=== PATIENT | male | born 1985 | race Caucasian/White ===

== ENCOUNTER 2023-08-25 13:37 | Emergency (ER) | payer OTHER, SELFPAY ==
[2023-08-25 13:43] VITALS: BP 128/99
[2023-08-25 14:08] LABS: % Basophils 0.5 % (0-2); % Eosinophils 4.1 % (0-6); % Immature Granulocytes 0.3 % (0-0.5); % Lymphocytes 23.6 % (20.5-51.1); % Monocytes 8.6 % (1.7-9.3); % Neutrophils 62.9 % (42.2-75.2); Absolute Basophils 0.1 10^3/uL (0-0.2); Absolute Eosinophils 0.5 10^3/uL (0-0.7); Absolute Lymphocytes 2.8 10^3/uL (1.2-3.4); Absolute Neutrophils 7.4 10^3/uL (1.4-6.5); Hematocrit 43.6 % (39.0-52.0); Hemoglobin 15.1 g/dL (13.0-18.0); Mean Corp Hgb Conc. 34.6 g/dL (33.0-37.0); Mean Corpuscular Hgb 32.5 pg (27.0-31.0); Mean Corpuscular Volume 93.8 fL (80.0-94.0); Mean Platelet Volume 9.5 fL (7.4-10.4); Nucleated Red Blood Cells % 0 % (-); Platelet Count 213 10^3/uL (130-400); Red Blood Cell Count 4.65 10^6/uL (4.70-6.10); Red Cell Dist. Width 13.2 % (11.5-14.5); White Blood Cell Count 11.8 10^3/uL (4.8-10.8)
[2023-08-25 14:09] LABS: INR 0.98
[2023-08-25 14:11] LABS: ALT (SGPT) 82 U/L (0-50); AST (SGOT) 44 U/L (17-59); Alkaline Phosphatase 88 U/L (38-126); Blood Urea Nitrogen 23 mg/dl (9-20); Calcium 10.4 mg/dl (8.4-10.2); Carbon Dioxide 25 mmol/L (22-30); Chloride 104 mmol/L (98-107); Glucose 89 mg/dl (70-99); Potassium 4.6 mmol/L (3.5-5.1); Sodium 137 mmol/L (135-145); Total Bilirubin 0.7 mg/dl (0.2-1.3); Total Protein 7.6 g/dl (6.3-8.2); eGFR > 60.00
[2023-08-25 14:21] LABS: Troponin I < 0.012 ng/ml
--- NOTE | 2023-08-25 15:08 | ED.GENMED ---
History of Present Illness
General
Chief Complaint: Chest Pain
Source: patient
Time Seen by Provider: 08/25/23 15:01
Travel History
Have you had any contact with someone who has COVID-19?: No
Do you have any symptoms of coronavirus? Fever > 100 degrees, chills, cough, shortness of breath, sore throat, loss of taste or smell, muscle aches, or headache?: No
History of Present Illness
History of Present Illness:
38-year-old male with past medical history of GERD, peptic ulcer disease, bipolar disorder presenting to the emergency department for evaluation of upper abdominal pain that has been ongoing over the last few days, intermittent, burning sensation,
unrelieved with his oral Pepcid. Patient states he believes that symptoms were aggravated after he was in [place] on a work trip and admits to drinking a fair amount of bourbon and not eating very well. Patient states symptoms feel very similar
to when he was diagnosed with gastritis in the past. He notes that he has been here twice for similar and the last time he 'got 2 medicines that relieved all of his symptoms within about a week'. He denies any fevers, chills, rigors, current chest
pain, shortness of breath, palpitations, diaphoresis, exertional dyspnea, cough, lower extremity edema or any other concerns presently. Social history was noted for alcohol, daily cigarette tobacco use, occasional marijuana use.
Past History
Past History
ED Past Medical History: Asthma, GERD, HTN, Psychiatric (Bipolar) and Other (Ulcers, Renal calculus)
ED Past Surgical History: None
Social History
Tobacco: Smoker
Alcohol: Occasional
Drug: Marijuana
Personal:
Living: with family
Employment: Employed
Review of Systems
Review of Systems
All Other Systems: ROS reviewed and negative except as documented in HPI and ROS
Phy Exam
Physical Exam
Physical Exam:
GENERAL: Alert , in no apparent distress
EYE: clear conjunctiva b/l
HEAD: NCAT
ENT: o/p clr, mmm.
CARDIAC: Regular rate and rhythm .
LUNGS: Clear breath sounds bilaterally, no acute respiratory distress, no wheezes/rales/rhonchi
ABDOMEN: Soft, mild epigastric ttp, no r/g, no cvat, negative Florentino sign, no tenderness at McBurney's point
NEUROLOGICAL: Alert and oriented
SKIN: Warm and dry, skin intact.
MUSCULOSKELETAL: well perfused.
PSYCH: Normal and appropriate interaction.
Scores
Heart Failure Risk
Heart Failure Risk Score: Not Applicable
Heart Score for Chest Pain Patients
STEMI patient?: No
History: Slightly or Non-Suspicious
ECG: Normal
Age: </= 45 years
Risk Factors: 1 or 2 Risk Factors
Troponin: </= Normal Limit
Heart Score for Chest Pain Patients: 1
Heart Score Risk: 2.5% MACE over next 6 weeks
Withdrawal Assessment of Alcohol
Withdrawal Assessment Completed?: Not applicable
Course
Orders/Labs/Results
Orders:
Orders
08/25/23 13:39
EKG [Electrocardiogram (*1)] Urgent
Reason for Study: Chest Pain
EKG- Treatment ONCE
08/25/23 13:47
CR Chest - 2 Views Urgent
Comment:
Reason For Exam: chest pain
08/25/23 13:51
Complete Blood Count/With Diff Urgent
Comprehensive Metabolic Panel Urgent
Lipase Urgent
Prothrombin Time Urgent
Troponin I Urgent
08/25/23 15:09
Add On- LAB Urgent
Tests Added?: lipase
Abnormal Lab Results
08/25/23
13:51
WBC 11.8 H 10^3/uL
(4.8-10.8)
RBC 4.65 L 10^6/uL
(4.70-6.10)
MCH 32.5 H pg
(27.0-31.0)
Absolute Neuts (auto) 7.4 H 10^3/uL
(1.4-6.5)
Absolute Monos (auto) 1.0 H 10^3/uL
(0.1-0.6)
BUN 23 H mg/dl
(9-20)
Calcium 10.4 H mg/dl
(8.4-10.2)
ALT 82 H U/L
(0-50)
08/25/23 13:51
08/25/23 13:51
Vital Signs
Initial and Last Documented VS:
Initial Vital Signs
Temp Pulse Resp BP Pulse Ox
98.7 F 97 17 128/99 98
08/25/23 13:43 08/25/23 13:43 08/25/23 13:43 08/25/23 13:43 08/25/23 13:43
Last Documented Vital Signs
Temp Pulse Resp BP Pulse Ox
98.7 F 97 17 128/99 98
08/25/23 13:43 08/25/23 13:43 08/25/23 13:43 08/25/23 13:43 08/25/23 13:43
MDM/Problems Addressed
Differential Diagnosis Includes:
GERD, gastritis, peptic ulcer disease, duodenitis, pancreatitis, less concern for an atypical ACS presentation
MDM/Problems Addressed:
38-year-old male presenting emergency department for evaluation of upper abdominal pain over the last week or so. Patient has multiple risk factors for GERD/gastritis and exacerbation of this including frequent alcohol use, smoking, poor diet.
Patient states all of these symptoms feel similar to when he was here previously a few years ago and diagnosed with gastritis. He has never had an endoscopy. Overall I am less concerned about an atypical ACS presentation but will order troponin
and EKG. Additional abdominal labs ordered. Anticipate discharge home. Based off record review patient received Protonix and Carafate as prescriptions to go home with so will reinitiate this.
Chronic conditions affecting care: Other (GERD/gastritis)
Acute Exacerbation and/or Progression of Chronic Illness: Other (GERD/gastritis)
*Pulse Oximetry
Patient hypoxic: no
*EKG
Interpreted by ED Provider?: Yes
Comparison EKG: no changes
Heart Rate: 92
Rate: normal
Rhythm: sinus
Atkinson: normal axis
Ischemia: no ischemia
*Critical Care Note
Total Time (30-74mins, 75-104mins- exclusive of procedures): Not Applicable
Data Reviewed
Review of Other/Old Records Reveals: Labs and Records
Source: patient and records
Comment
Comment:
Patient's labs show a negative troponin, nonischemic EKG. He does have a very mildly elevated ALT which is likely from alcohol intake. Nonspecific leukocytosis. Patient to be discharged home. Aware of return precautions and outpatient follow-up
recommendations.
ED Attending Note
-
Portions of this chart may have been created with voice recognition software.� Occasional wrong word or��sound alike� substitutions may have occurred due to the inherent limitations of voice recognition software.
Discharge Plan
Departure
Patient Disposition: Home (Routine Discharge)
Date of Disposition: 08/25/23
Time of Disposition: 15:39
Patient with high blood pressure during this ER visit?: Yes
Discharge Problem:
Upper abdominal pain
Instructions: Gastritis (DC)
Prescriptions:
New
pantoprazole [Protonix] 40 mg tablet,delayed release (DR/EC)
40 mg PO DAILY Qty: 30 0RF
sucralfate [Carafate] 100 mg/mL suspension
10 ml PO QID Qty: 1000 0RF
No Action
famotidine [Pepcid] 40 MG tablet
40 mg PO DAILY Qty: 30 0RF
pantoprazole [Protonix] 40 mg tablet,delayed release (DR/EC)
40 mg PO BID 14 Days Qty: 28 0RF
sucralfate [Carafate] 1 gram tablet
1 g PO BID Qty: 30 0RF
levofloxacin 500 mg tablet
500 mg PO DAILY 9 Days Qty: 9 0RF
Referrals:
Jayden Nicole, DO [Family Provider] -
Interventions
Interventions:
*Risk Screen - Suicide Last Done: 08/25/23 13:44
*General Assessment Last Done: 08/25/23 13:44
*Neglect/Abuse Screening Last Done: 08/25/23 13:44
*ED COVID-19 Vaccine History Last Done: 08/25/23 13:44
*Nursing Disposition Last Done: 08/25/23 15:48
Discharge Date and Time
Discharge Date/Time: 08/25/23 15:48
Print Language: SINHALA
[2023-08-25 15:36] LABS: Lipase 88 U/L (23-300)
== END 2023-08-25 15:48 | disposition home or self-care (01) ==
LOC: EMR 13:37
PROVIDERS: EMERGENCY PHYSICIAN Emergency Medicine; FAMILY PHYSICIAN Family Medicine
DX: R10.10 Upper abdominal pain, unspecified (principal); K30 Functional dyspepsia; K21.9 Gastro-esophageal reflux disease without esophagitis; F31.9 Bipolar disorder, unspecified; J45.909 Unspecified asthma, uncomplicated; I10 Essential (primary) hypertension; F17.210 Nicotine dependence, cigarettes, uncomplicated; Z87.11 Personal history of peptic ulcer disease; Z87.442 Personal history of urinary calculi
CPT/HCPCS: 99283; 71046; 80053; 83690; 84484; 85025; 85610; 93005

== ENCOUNTER 2023-09-24 06:34 | Emergency (ER) | payer OTHER, SELFPAY ==
[2023-09-24 06:41] VITALS: BP 141/94
--- NOTE | 2023-09-24 07:09 | ED.GENMED ---
History of Present Illness
General
Chief Complaint: Chest Pain
Source: patient and records
Exam Limitations: none
Time Seen by Provider: 09/24/23 06:55
Nursing documentation reviewed up to this point in time: agreed with
History of Present Illness
History of Present Illness:
38-year-old male with past medical history of asthma, GERD/PUD, smoker who presents to the emergency department for evaluation of chest pain. Of note, patient was here 08/25/2023 for upper abdominal pain and was diagnosed with acute gastritis�he
says symptoms today are distinct and that his gastritis symptoms have resolved with treatment. He presents today with chest pain that he says started when he woke up around 5 AM. He says he went outside to smoke a cigarette and when he sat down on
the couch on his porch he noticed he was having some chest pressure. He says that it seems to be lingering and when he discussed with his who is a nurse she recommended he come to the emergency room for assessment. He says that since arrival
it seems to have subsided. Total duration was roughly 2 hours. He denies any significant shortness of breath aside from his typical smoking-related respiratory symptoms. He denies any recent cough or fevers/chills. He says last night he did have
some nausea and an episode of loose stools but this resolved and he did not have any nausea or vomiting associate with this episode. He denies any swelling or pain in the legs. He denies any personal history of cardiac issues but says he has a
strong family history of heart disease. Notably he admits that typically he smokes both cigarettes and marijuana but last night was using a vape rather aggressively for both nicotine and marijuana.
Past History
Past History
ED Past Medical History: Asthma, GERD, HTN, Psychiatric (Bipolar) and Other (Ulcers, Renal calculus)
ED Past Surgical History: None
Social History
Tobacco: Smoker
Alcohol: Occasional
Drug: Marijuana
Personal:
Living: with family
Employment: Employed
Review of Systems
Review of Systems
All Other Systems: ROS reviewed and negative except as documented in HPI and ROS
Constitutional: Denies fever or chills
EENT: Denies sore throat or runny nose
Respiratory: Denies cough or trouble breathing
Cardiac: Reports chest pain; Denies diaphoresis or palpitations
ABD/GI: Reports nausea and diarrhea; Denies abdominal pain or vomiting
: Denies flank pain
Musculoskeletal: Denies neck pain or back pain
Neurological: Denies dizzy or headache
Phy Exam
Physical Exam
Physical Exam:
General: Awake, alert, oriented x3; no acute distress
Head: Normocephalic, atraumatic
Eyes: Conjunctiva normal, sclera anicteric
Throat: Airway intact, handling secretions
Neck: Trachea midline
Lungs: Clear to auscultation bilaterally, no wheezing, rales, rhonchi
Heart: Regular rate and rhythm, no murmurs, gallops, or rubs
Abd: Soft, non distended, nontender
Neuro: No gross deficits
Skin: no rash
Extremities: No edema in extremities, equal pulses in all extremities
Scores
Heart Failure Risk
Heart Failure Risk Score: Not Applicable
Heart Score for Chest Pain Patients
STEMI patient?: No
History: Slightly or Non-Suspicious
ECG: Normal
Age: </= 45 years
Risk Factors: >/= 3 Risk Factors or History of CAD (Family history of heart disease, smoker, obesity)
Troponin: </= Normal Limit
Heart Score for Chest Pain Patients: 2
Heart Score Risk: 2.5% MACE over next 6 weeks
Withdrawal Assessment of Alcohol
Withdrawal Assessment Completed?: Not applicable
Course
Orders/Labs/Results
Orders:
Orders
09/24/23 06:36
Electrocardiogram (*1) Urgent
Reason for Study: Chest Pain
EKG- Treatment ONCE
09/24/23 07:08
CR Chest - 2 Views Urgent
Comment:
Reason For Exam: cp
09/24/23 07:09
Complete Blood Count/With Diff Urgent
Comprehensive Metabolic Panel Urgent
Lipase Urgent
Troponin I Urgent
09/24/23 07:26
D-Dimer Urgent
09/24/23 09:33
Troponin I Urgent
Abnormal Lab Results
09/24/23
07:09
RBC 4.37 L 10^6/uL
(4.70-6.10)
MCV 96.3 H fL
(80.0-94.0)
MCH 32.3 H pg
(27.0-31.0)
Abs Immat Gran (auto) 0.1 H 10^3/uL
(0-0.05)
Absolute Neuts (auto) 6.6 H 10^3/uL
(1.4-6.5)
Absolute Monos (auto) 0.8 H 10^3/uL
(0.1-0.6)
Immature Gran % 0.6 H %
(0-0.5)
Chloride 110 H mmol/L
(98-107)
BUN 23 H mg/dl
(9-20)
Glucose 105 H mg/dl
(70-99)
09/24/23 07:09
09/24/23 07:09
Vital Signs
Initial and Last Documented VS:
Initial Vital Signs
Temp Pulse Resp BP Pulse Ox
36.8 C 91 18 141/94 99
09/24/23 06:41 09/24/23 06:41 09/24/23 06:41 09/24/23 06:41 09/24/23 06:41
Last Documented Vital Signs
Temp Pulse Resp BP Pulse Ox
36.8 C 79 18 117/78 99
09/24/23 06:41 09/24/23 09:00 06/21/24 06:41 09/24/23 08:00 09/24/23 06:41
MDM/Problems Addressed
Differential Diagnosis Includes:
Pneumothorax, pneumomediastinum, pleurisy, costochondritis, GERD; ACS, PE, aortic dissection all considered much less likely clinically
MDM/Problems Addressed:
38-year-old male with history as above presents for evaluation of chest pain lasted for about 2 hours this morning in the setting of smoking/vaping last night. He did have some nausea yesterday evening and loose stools but none this morning.
Currently feeling well says symptoms have abated. Marginal hypertension but otherwise normal vitals. Physical exam as above. EKG shows no STEMI. Will place an IV check labs including a CBC and CMP. Will check troponin. Check D-dimer. Will
send for chest x-ray. Will monitor closely reassess after the above.
Labs reviewed: CBC unremarkable, CMP no clinically significant abnormalities. Troponin undetectable x 2. D-dimer negative. Chest x-ray reviewed by me shows no pneumothorax or any other emergent pathology. Patient remained stable with reassuring
vitals and exam on clinical reassessment. Stable for discharge at this point in time. Suspect likely some pleurisy related to smoking versus GERD. Symptoms very atypical do not suspect angina or cardiac chest pain at this point. Advised to
follow-up with his primary doctor for further assessment. He feels comfortable with this plan. All questions answered.
Chronic conditions affecting care:
Smoking, GERD
Acute Exacerbation and/or Progression of Chronic Illness: HTN
*Radiology
Radiology exam reviewed: preliminary read by ED provider and radiology read reviewed
*Pulse Oximetry
Patient hypoxic: no
*EKG
Interpreted by ED Provider?: Yes
Comparison EKG: no changes
Heart Rate: 94
Rate: normal
Rhythm: sinus
Hunter: normal axis
Interval: normal interval
QRS Pattern: normal QRS
Ischemia: no ischemia
*Critical Care Note
Total Time (30-74mins, 75-104mins- exclusive of procedures): Not Applicable
Data Reviewed
Review of Other/Old Records Reveals: Labs, Records and Radiology Studies
Source: patient and records
ED Attending Note
-
Portions of this chart may have been created with voice recognition software.� Occasional wrong word or��sound alike� substitutions may have occurred due to the inherent limitations of voice recognition software.
Discharge Plan
Departure
Patient Disposition: Home (Routine Discharge)
Date of Disposition: 09/24/23
Time of Disposition: 10:12
Patient with high blood pressure during this ER visit?: Yes
Discharge Problem:
Chest pain
Instructions: Chest Pain PCP Follow Up
Prescriptions:
No Action
famotidine [Pepcid] 40 MG tablet
40 mg PO DAILY Qty: 30 0RF
pantoprazole [Protonix] 40 mg tablet,delayed release (DR/EC)
40 mg PO BID 14 Days Qty: 28 0RF
sucralfate [Carafate] 1 gram tablet
1 g PO BID Qty: 30 0RF
levofloxacin 500 mg tablet
500 mg PO DAILY 9 Days Qty: 9 0RF
pantoprazole [Protonix] 40 mg tablet,delayed release (DR/EC)
40 mg PO DAILY Qty: 30 0RF
sucralfate [Carafate] 100 mg/mL suspension
10 ml PO QID Qty: 1000 0RF
Referrals:
Jayden Nicole DO [Family Provider] - Call in 1-3 days for appt
Activity Restrictions/Additional Instructions:
Thank you for visiting the Emergency Department at [facility].
1. Please schedule a follow up appointment as directed. Call first thing tomorrow morning to make an appointment.
2. If indicated, please take your medications as instructed and indicated on discharge paperwork.
3. If any of your symptoms do not improve, or persist, or become more severe within 6-12 hours, please return to the emergency department for further care.
4. Please return to the emergency department if you develop a headache, neck pain/stiffness, fever greater than 100.4F, chest pain, shortness of breath, persistent nausea, vomiting, slurred speech, difficulty walking, numbness/tingling, weakness,
signs of infection or any other symptoms that are worrisome to you.
Please call [phone] if you have any questions.
Interventions
Interventions:
*Risk Screen - Suicide Last Done: 09/24/23 06:41
*General Assessment Last Done: 09/24/23 06:41
*Neglect/Abuse Screening Last Done: 09/24/23 06:41
Discharge Date and Time
Print Language: HUNGARIAN
[2023-09-24 07:30] LABS: % Basophils 0.4 % (0-2); % Eosinophils 3.7 % (0-6); % Immature Granulocytes 0.6 % (0-0.5); % Lymphocytes 22.1 % (20.5-51.1); % Monocytes 8.2 % (1.7-9.3); Absolute Eosinophils 0.4 10^3/uL (0-0.7); Absolute Immature Granulocytes 0.1 10^3/uL (0-0.05); Absolute Lymphocytes 2.2 10^3/uL (1.2-3.4); Absolute Monocytes 0.8 10^3/uL (0.1-0.6); Absolute Neutrophils 6.6 10^3/uL (1.4-6.5); Hematocrit 42.1 % (39.0-52.0); Hemoglobin 14.1 g/dL (13.0-18.0); Mean Corp Hgb Conc. 33.5 g/dL (33.0-37.0); Mean Corpuscular Hgb 32.3 pg (27.0-31.0); Mean Corpuscular Volume 96.3 fL (80.0-94.0); Nucleated Red Blood Cells % 0 % (-); Platelet Count 194 10^3/uL (130-400); Red Blood Cell Count 4.37 10^6/uL (4.70-6.10); Red Cell Dist. Width 12.8 % (11.5-14.5); White Blood Cell Count 10.1 10^3/uL (4.8-10.8)
[2023-09-24 07:38] LABS: ALT (SGPT) 35 U/L (0-50); AST (SGOT) 25 U/L (17-59); Albumin 4.2 g/dl (3.5-5.0); Alkaline Phosphatase 72 U/L (38-126); Blood Urea Nitrogen 23 mg/dl (9-20); Calcium 9.3 mg/dl (8.4-10.2); Carbon Dioxide 24 mmol/L (22-30); Chloride 110 mmol/L (98-107); Glucose 105 mg/dl (70-99); Lipase 125 U/L (23-300); Potassium 4.4 mmol/L (3.5-5.1); Sodium 140 mmol/L (135-145); Total Bilirubin 0.4 mg/dl (0.2-1.3); Total Protein 6.3 g/dl (6.3-8.2); eGFR > 60.00
[2023-09-24 07:49] LABS: Troponin I < 0.012 ng/ml
[2023-09-24 08:00] VITALS: BP 117/78
[2023-09-24 08:11] LABS: D-Dimer < 0.27 ug/mlFEU (0.00-0.50)
[2023-09-24 09:00] VITALS: BP 113/74
[2023-09-24 10:05] LABS: Troponin I < 0.012 ng/ml
[2023-09-24 10:23] VITALS: BP 122/64
== END 2023-09-24 10:28 | disposition home or self-care (01) ==
LOC: EMR 06:34
PROVIDERS: EMERGENCY PHYSICIAN Emergency Medicine; FAMILY PHYSICIAN Family Medicine
DX: R07.89 Other chest pain (principal); J45.909 Unspecified asthma, uncomplicated; K21.9 Gastro-esophageal reflux disease without esophagitis; I10 Essential (primary) hypertension; F31.9 Bipolar disorder, unspecified; I25.10 Atherosclerotic heart disease of native coronary artery without angina pectoris; F17.210 Nicotine dependence, cigarettes, uncomplicated; Z82.49 Family history of ischemic heart disease and other diseases of the circulatory system; Z87.11 Personal history of peptic ulcer disease; Z87.442 Personal history of urinary calculi
CPT/HCPCS: 99283; 71046; 80053; 83690; 84484; 85025; 85379; 93005

== ENCOUNTER 2023-12-15 13:40 | Emergency (ER) | payer OTHER, SELFPAY ==
[2023-12-15 13:42] VITALS: BP 142/102
[2023-12-15 14:22] LABS: % Basophils 0.5 % (0-2); % Eosinophils 3.7 % (0-6); % Immature Granulocytes 0.4 % (0-0.5); % Lymphocytes 24.5 % (20.5-51.1); % Monocytes 8.1 % (1.7-9.3); % Neutrophils 62.8 % (42.2-75.2); Absolute Basophils 0.1 10^3/uL (0-0.2); Absolute Eosinophils 0.4 10^3/uL (0-0.7); Absolute Lymphocytes 2.8 10^3/uL (1.2-3.4); Absolute Monocytes 0.9 10^3/uL (0.1-0.6); Hemoglobin 14.5 g/dL (13.0-18.0); Mean Corp Hgb Conc. 35.4 g/dL (33.0-37.0); Mean Corpuscular Hgb 33.3 pg (27.0-31.0); Mean Platelet Volume 9.9 fL (7.4-10.4); Nucleated Red Blood Cells % 0 % (-); Platelet Count 216 10^3/uL (130-400); Red Blood Cell Count 4.36 10^6/uL (4.70-6.10); Red Cell Dist. Width 12.9 % (11.5-14.5); White Blood Cell Count 11.2 10^3/uL (4.8-10.8)
[2023-12-15 14:40] LABS: ALT (SGPT) 33 U/L (0-50); AST (SGOT) 26 U/L (17-59); Albumin 4.7 g/dl (3.5-5.0); Alkaline Phosphatase 79 U/L (38-126); Blood Urea Nitrogen 20 mg/dl (9-20); Carbon Dioxide 18 mmol/L (22-30); Chloride 109 mmol/L (98-107); Glucose 87 mg/dl (70-99); Potassium 4.3 mmol/L (3.5-5.1); Sodium 138 mmol/L (135-145); Total Bilirubin 0.5 mg/dl (0.2-1.3); Total Protein 6.7 g/dl (6.3-8.2); eGFR > 60.00
--- NOTE | 2023-12-15 14:43 | ED.GENMED ---
History of Present Illness
General
Chief Complaint: Chest Problem
Source: patient
Exam Limitations: none
Time Seen by Provider: 12/15/23 13:59
Nursing documentation reviewed up to this point in time: agreed with
History of Present Illness
History of Present Illness:
38 y/o M with h/o GERD, smoker,
fhx of premature cad
here with chest heaviness x 2 days, feels occasinoal heart racing and SOB
does think that the heaviness is worse with exertion but he has not had any limiting of activity
dad had [place] in 40s
pt has seen winsome villar 2 years ago for screening, lilli buitrago a stress test, was supposed to but didn't get a call so never f/u
has been under a lot of stress lately
no pleuritic pain
travels alot for work
DOES HAVE H/O PUD, is on famotidine but still smokes
no black stool
Past History
Past History
ED Past Medical History: Asthma, GERD, HTN, Psychiatric (Bipolar) and Other (Ulcers, Renal calculus)
ED Past Surgical History: None
Social History
Tobacco: Smoker
Alcohol: Occasional
Drug: Marijuana
Personal:
Living: with family
Employment: Employed
Review of Systems
Review of Systems
Allergies reviewed?: Yes
All Other Systems: Not applicable
Phy Exam
Physical Exam
Physical Exam:
GENERAL: Alert , in no apparent distress
EYE: pupils equal and reactive
NECK: Supple
ENT: o/p clr, mmm.
CARDIAC: Regular rate and rhythm .no edema (bigeminy on ekg initially but on montitor, pt was NSR)
LUNGS: Clear breath sounds bilaterally, no acute respiratory distress, no wheezes/rales/rhonchi
ABDOMEN: Soft, without focal tenderness, no r/g, no cvat, normal bowel sounds
NEUROLOGICAL: Alert and oriented, no focal neuro deficits
SKIN: Warm and dry, skin intact.
MUSCULOSKELETAL: No edema, well perfused. neg mitchell's sign
PSYCH: Normal and appropriate interaction.
Scores
Heart Score for Chest Pain Patients
STEMI patient?: No
History: Slightly or Non-Suspicious
ECG: Nonspecific Repolarization
Age: </= 45 years
Risk Factors: >/= 3 Risk Factors or History of CAD
Troponin: </= Normal Limit
Heart Score for Chest Pain Patients: 3
Heart Score Risk: 2.5% MACE over next 6 weeks
Course
Orders/Labs/Results
Orders:
Orders
12/15/23 13:41
ECG [Electrocardiogram (*1)] Urgent
Reason for Study: Chest Pain
12/15/23 13:42
EKG- Treatment ONCE
12/15/23 14:09
Complete Blood Count/With Diff Urgent
Comprehensive Metabolic Panel Urgent
Lipase Urgent
Comment: ADD ON
Magnesium Urgent
Comment: ADD ON
Troponin I Urgent
12/15/23 14:32
Add On- LAB Urgent
Tests Added?: magnesium
CT Chest Pe Study Urgent
Comment:
Reason For Exam: chest heaivness and sob
12/15/23 14:39
COVID-19 Antigen Urgent
Source: Nasal Swab
12/15/23 15:31
EKG- Treatment ONCE
12/15/23 17:00
Electrocardiogram (*1) Urgent
Reason for Study: Chest Pain
12/15/23 17:06
Troponin I Urgent
12/15/23 17:45
Add On- LAB Stat
Tests Added?: lipase
Abnormal Lab Results
12/15/23
14:09
WBC 11.2 H 10^3/uL
(4.8-10.8)
RBC 4.36 L 10^6/uL
(4.70-6.10)
MCH 33.3 H pg
(27.0-31.0)
Absolute Neuts (auto) 7.0 H 10^3/uL
(1.4-6.5)
Absolute Monos (auto) 0.9 H 10^3/uL
(0.1-0.6)
Chloride 109 H mmol/L
(98-107)
Carbon Dioxide 18 L mmol/L
(22-30)
12/15/23 14:09
12/15/23 14:09
Vital Signs
Initial and Last Documented VS:
Initial Vital Signs
Temp Pulse Resp BP Pulse Ox
98.2 F 95 16 142/102 99
12/15/23 13:42 12/15/23 13:42 12/15/23 13:42 12/15/23 13:42 12/15/23 13:42
Last Documented Vital Signs
Temp Pulse Resp BP Pulse Ox
98.2 F 89 23 132/84 99
12/15/23 13:42 12/15/23 18:00 12/15/23 18:00 12/15/23 17:00 12/15/23 16:15
MDM/Problems Addressed
Differential Diagnosis Includes:
acs, angina, SCOT, stress, anxiety, PUD
MDM/Problems Addressed:
38 y/o M
h/o HTN, obesity, fhx of premature cad, smoking
here with ches tpain
it is a heaviness and does seem to come and go, isn't always exertional but sometimes with heavy exertion he has worse symptoms
he has been under a lot of stress
pain is also occasionally assoc with sob
no fever, cough
equine intern noted pt's voice to be hoarse but he says this is his voice chronically
no weight loss, trouble swallowing, black stool, pleuriti pain
but he does travel a lot for work
On exam he looks really well, is in no respiratory distress, has no chest wall tenderness, has clear lungs, I appreciate the patient's EKG being in bigeminy but then on the monitor he has been normal sinus rhythm.
His chest CT was negative for PE. His troponin was negative. His white blood cell count was minimally elevated at 11.2. His COVID was negative. Given the higher heart score I did do a second troponin. I discussed this case with ED attending who
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 He is already plugged in some having tenderness had an evaluation with a different crusher and blender operator. I highly encouraged him to have a close follow-up and
avoid heavy exertional activity until then. It seems as if he has been treated with Protonix before. I will encourage that he takes that rather than the famotidine for his reflux
*Critical Care Note
Total Time (30-74mins, 75-104mins- exclusive of procedures): Not Applicable
ED Attending Note
-
Portions of this chart may have been created with voice recognition software.� Occasional wrong word or��sound alike� substitutions may have occurred due to the inherent limitations of voice recognition software.
Discharge Plan
Departure
Patient Disposition: Home (Routine Discharge)
Date of Disposition: 12/15/23
Time of Disposition: 18:20
Patient with high blood pressure during this ER visit?: Yes
Condition: Fair
Covid-19: Not Applicable
Discharge Problem:
Chest pain
Instructions: Chest Pain NON-DHP Infection Preventionist Follow Up
Prescriptions:
New
pantoprazole [Protonix] 40 mg tablet,delayed release (DR/EC)
40 mg PO DAILY Qty: 30 0RF
No Action
famotidine [Pepcid] 40 MG tablet
40 mg PO DAILY Qty: 30 0RF
pantoprazole [Protonix] 40 mg tablet,delayed release (DR/EC)
40 mg PO BID 14 Days Qty: 28 0RF
sucralfate [Carafate] 1 gram tablet
1 g PO BID Qty: 30 0RF
levofloxacin 500 mg tablet
500 mg PO DAILY 9 Days Qty: 9 0RF
pantoprazole [Protonix] 40 mg tablet,delayed release (DR/EC)
40 mg PO DAILY Qty: 30 0RF
sucralfate [Carafate] 100 mg/mL suspension
10 ml PO QID Qty: 1000 0RF
Referrals:
Jayden Nicole DO [Family Provider] - Follow up in 5-7 days
Stand Alone Forms: Return to Work
Activity Restrictions/Additional Instructions:
This chest pain does not seem to be caused by medical emergency however it is very important that you follow-up with the central office equipment engineer. Sounds as though you never had a stress with your risk it is best to have that done. In the meantime avoid heavy
exertion/heavy lifting is much as you can. Take Protonix once a day rather than famotidine for your reflux. Avoid acidic foods and caffeine. You had some frequent PVCs on your EKG. These are usually benign but can be increased by stress and
smoking and caffeine use. Return for worsening symptoms like passing out, worsening chest pain, sweatiness, exertional chest pain or any concerns
Interventions
Interventions:
*Risk Screen - Suicide Last Done: 12/15/23 18:37
*General Assessment Last Done: 12/15/23 14:03
*Neglect/Abuse Screening Last Done: 12/15/23 14:03
ED- Fall Risk Assessment Last Done: 12/15/23 14:03
*ED COVID-19 Vaccine History Last Done: 12/15/23 14:03
*Nursing Disposition Last Done: 12/15/23 18:37
ED- Cardiac Assessment Last Done: 12/15/23 14:03
ED- Pulmonary Assessment Last Done: 12/15/23 14:03
Discharge Date and Time
Discharge Date/Time: 12/15/23 18:37
Print Language: TURKMEN
[2023-12-15 14:44] LABS: Troponin I < 0.012 ng/ml
[2023-12-15 14:56] LABS: Magnesium 2.1 mg/dl (1.6-2.3)
[2023-12-15 15:02] LABS: COVID-19 Antigen Negative (Negative)
[2023-12-15 15:41] VITALS: BP 131/85
[2023-12-15 15:48] VITALS: BP 131/85
[2023-12-15 16:14] VITALS: BP 115/79
[2023-12-15 17:00] VITALS: BP 132/84
[2023-12-15 17:38] LABS: Troponin I < 0.012 ng/ml
[2023-12-15 18:17] LABS: Lipase 115 U/L (23-300)
== END 2023-12-15 18:37 | disposition home or self-care (01) ==
LOC: EMR 13:40
PROVIDERS: Physician Assistant; EMERGENCY PHYSICIAN Emergency Medicine; FAMILY PHYSICIAN Family Medicine
DX: R07.89 Other chest pain (principal); K21.9 Gastro-esophageal reflux disease without esophagitis; I25.10 Atherosclerotic heart disease of native coronary artery without angina pectoris; J45.909 Unspecified asthma, uncomplicated; I10 Essential (primary) hypertension; F31.9 Bipolar disorder, unspecified; E66.9 Obesity, unspecified; F17.200 Nicotine dependence, unspecified, uncomplicated; Z82.49 Family history of ischemic heart disease and other diseases of the circulatory system; Z87.11 Personal history of peptic ulcer disease; Z87.442 Personal history of urinary calculi
CPT/HCPCS: 99284; 71275; 80053; 83690; 83735; 84484; 85025; 87811; 93005; Q9967